=== PATIENT | male | born 1945 | race Hispanic/Latino ===

== ENCOUNTER 2020-07-08 14:04 | Observation (INO) | payer OTHER, MEDICARE ==
[~2020-07-08] VITALS: Ht 157.5 cm; Wt 71.8 kg
[2020-07-08 15:04] LABS: BASOPHILS % (AUTO) 0.4 % (0.0-5.0); EOSINOPHILS % (AUTO) 0.3 % (0.0-8.0); HEMATOCRIT 38.5 % (42-54); LYMPHOCYTES % (AUTO) 7.4 % (21.0-51.0); MEAN CORPUSCULAR HEMOGLOBIN 29.2 pg (27.0-33.0); MEAN CORPUSCULAR HGB CONC 32.2 g/dL (32.0-36.0); MEAN CORPUSCULAR VOLUME 90.6 fL (79-99); MONOCYTES % (AUTO) 5.2 % (3.0-13.0); NEUTROPHILS % (AUTO) 85.8 % (40.0-77.0); PLATELET COUNT (AUTO) 208 K/uL (130-400); RED BLOOD CELL COUNT(AUTO) 4.25 MIL/uL (4.50-6.20); RED CELL DISTRIBUTION WIDTH 14.7 % (11.0-15.5); WHITE BLOOD COUNT (AUTO) 9.6 K/uL (4.8-10.8)
[2020-07-08 15:17] LABS: CREATININE 1.7 mg/dL (0.5-1.5); POTASSIUM 3.7 mmol/L (3.5-5.1)
[2020-07-08 15:19] LABS: INR 1.06 (0.85-1.15); PROTHROMBIN TIME 11.5 SEC (9.6-11.6)
[2020-07-08 15:20] LABS: PARTIAL THROMBOPLASTIN TIME 25.1 SEC (26.3-35.5)
[2020-07-08 15:22] LABS: ALBUMIN 3.8 g/dL (3.5-5.0); BILIRUBIN,TOTAL 0.4 mg/dL (0.2-1.0); TOTAL PROTEIN, SERUM 7.6 g/dL (6.0-8.3)
[2020-07-08 15:27] LABS: B-TYPE NATRIURETIC PEPTIDE 740 pg/mL (0-100)
[2020-07-08] MEDS ORDERED: ONDANSETRON HCL 4 MG/2 ML VIAL IV PRN (18:15)
[2020-07-08] MEDS ORDERED: LACTULOSE 20 GM/30 ML UDCUP PO PRN (18:15)
[2020-07-08] MEDS ORDERED: ACETAMINOPHEN 325 MG TAB PO PRN ×2 (18:15)
[2020-07-08] MEDS ORDERED: ACETAMINOPHEN-CODEINE 300/30MG TAB PO PRN (18:15)
[2020-07-08] MEDS ORDERED: LABETALOL 20 MG/4 ML DISP.SYRIN IV PRN (19:15)
[2020-07-09] VITALS (10 sets, daily range): BP systolic 99–157; BP diastolic 64–90
[2020-07-09] MEDS ORDERED: CHOL500051 PO (00:33)
[2020-07-09] MEDS ORDERED: OMEG-148 PO (00:33)
[2020-07-09] MEDS ORDERED: METF-444 PO (00:33)
[2020-07-09] MEDS ORDERED: SIMV-43 PO (00:33)
[2020-07-09] MEDS ORDERED: AMLO10TA4 PO (00:33)
[2020-07-09] MEDS ORDERED: MULT-1259 PO (00:33)
[2020-07-09] MEDS ORDERED: AEC81 PO (00:33)
[2020-07-09] MEDS ORDERED: LOSA1TAB54 PO (00:33)
[2020-07-09] MEDS ORDERED: ASCO100031 PO (00:33)
[2020-07-09] MEDS: METOPROLOL TARTRATE 25 MG TAB PO SCH ×3 (00:37→20:26)
[2020-07-09] MEDS: ENOXAPARIN SODIUM 80 MG/0.8 ML SQ SCH ×2 (00:37→20:26)
[2020-07-09] MEDS: FAMOTIDINE 20MG TAB 20 MG TAB PO SCH ×2 (00:37→20:26)
[2020-07-09] MEDS: INSULIN LISPRO 100 UNIT/ML 3ML SQ SCH ×5 (05:26→23:41)
[2020-07-09 05:58] LABS: BASOPHILS % (AUTO) 0.7 % (0.0-5.0); EOSINOPHILS % (AUTO) 4.3 % (0.0-8.0); LYMPHOCYTES % (AUTO) 19.3 % (21.0-51.0); MEAN CORPUSCULAR HEMOGLOBIN 30.1 pg (27.0-33.0); MEAN CORPUSCULAR HGB CONC 33.2 g/dL (32.0-36.0); MEAN CORPUSCULAR VOLUME 90.5 fL (79-99); MONOCYTES % (AUTO) 9.7 % (3.0-13.0); NEUTROPHILS % (AUTO) 65.6 % (40.0-77.0); PLATELET COUNT (AUTO) 206 K/uL (130-400); RED BLOOD CELL COUNT(AUTO) 4.09 MIL/uL (4.50-6.20); RED CELL DISTRIBUTION WIDTH 14.7 % (11.0-15.5); WHITE BLOOD COUNT (AUTO) 7.5 K/uL (4.8-10.8)
[2020-07-09 06:09] LABS: HEMOGLOBIN A1C 6.4 % (4.0-6.0)
[2020-07-09 06:33] LABS: ALBUMIN 3.4 g/dL (3.5-5.0); BILIRUBIN,TOTAL 0.3 mg/dL (0.2-1.0); CREATININE 1.5 mg/dL (0.5-1.5); MAGNESIUM 1.9 mg/dL (1.80-2.40); POTASSIUM 3.7 mmol/L (3.5-5.1); THYROID STIMULATING HORMONE 1.52 uIU/mL (0.36-3.74); TOTAL PROTEIN, SERUM 6.9 g/dL (6.0-8.3)
[2020-07-09] MEDS: AMLODIPINE BESYLATE 5 MG TAB PO SCH (08:54)
[2020-07-09] MEDS: ASPIRIN 81MG TAB.CHEW PO SCH (08:54)
[2020-07-09] MEDS ORDERED: ASPIRIN 325 MG TABLET PO SCH (09:00)
[2020-07-09] MEDS: PROPAFENONE HCL 150 MG TABLET PO SCH ×2 (17:37→17:40)
[2020-07-09] MEDS: APIXABAN 5 MG TABLET PO SCH ×2 (17:37→20:26)
[2020-07-10] MEDS: PROPAFENONE HCL 150 MG TABLET PO SCH ×3 (01:50→18:15)
[2020-07-10 03:32] VITALS: BP 92/60
[2020-07-10] MEDS: INSULIN LISPRO 100 UNIT/ML 3ML SQ SCH ×3 (05:25→16:30)
[2020-07-10 06:07] LABS: CREATININE 1.7 mg/dL (0.5-1.5)
[2020-07-10 07:30] VITALS: BP_SYST 121; BP_SYST 128; BP_SYST 140; BP_DIAS 70; BP_DIAS 72
[2020-07-10] MEDS ORDERED: METOPROLOL TARTRATE 25 MG TAB PO SCH (09:00)
[2020-07-10] MEDS: ASPIRIN 81MG TAB.CHEW PO SCH (09:15)
[2020-07-10] MEDS: APIXABAN 5 MG TABLET PO SCH (09:16)
[2020-07-10] MEDS: AMLODIPINE BESYLATE 5 MG TAB PO SCH (09:16)
[2020-07-10] MEDS ORDERED: APIX5TAB PO (09:26)
[2020-07-10] MEDS ORDERED: PROP225C8 PO (09:26)
[2020-07-10] MEDS ORDERED: METO25TA6 PO (09:28)
[2020-07-10 11:00] VITALS: BP_SYST 120; BP_SYST 121; BP_SYST 125; BP_DIAS 65; BP_DIAS 66; BP_DIAS 74
[2020-07-10 16:00] VITALS: BP 107/64
[2020-07-11] MEDS ORDERED: NON-FORMULARY MEDICATION 1 EACH (Omega-3S/Dha/Epa/Fish Oil (Fish Oil 1,000 mg Softgel) 1 E PO SCH (09:00)
[2020-07-11] MEDS ORDERED: IRON PO SCH (09:00)
[2020-07-11] MEDS ORDERED: NON-FORMULARY MEDICATION 1 EACH (Cholecalciferol (Vitamin D3) (Vitamin D3) 125 MCG) PO SCH (09:00)
[2020-07-11] MEDS ORDERED: ASCORBIC ACID 500 MG TAB PO SCH (09:00)
[2020-07-11] MEDS ORDERED: [UNRECOGNIZED DRUG - OTHER] PO SCH (09:00)
[2020-07-11] MEDS ORDERED: MULTIVITAMIN TABLET PO SCH (09:00)
[2020-07-11] MEDS ORDERED: MULTIVITS CA MIN PO SCH (09:00)
[2020-07-11] MEDS ORDERED: LYCOP PO SCH (09:00)
[2020-07-11] MEDS ORDERED: METFORMIN HCL 500 MG TABLET PO SCH (09:00)
[2020-07-11] MEDS ORDERED: FISH OIL 1000 MG/CAP PO SCH (09:00)
[2020-07-11] MEDS ORDERED: NON-FORMULARY MEDICATION 1 EACH (Ascorbic Acid (Vitamin C) 1,000 MG) PO SCH (09:00)
== END 2020-07-10 19:10 | disposition home or self-care (01) ==
LOC: EDH 14:04 → EDHIP 17:30 → 3AH 23:51
PROVIDERS: ADMIT Internal Medicine Critical Care Medicine; ATTEND Internal Medicine Critical Care Medicine
DX: R42 Dizziness and giddiness (principal); R00.2 Palpitations; I48.0 Paroxysmal atrial fibrillation; I10 Essential (primary) hypertension; E78.5 Hyperlipidemia, unspecified; E11.9 Type 2 diabetes mellitus without complications; N17.9 Acute kidney failure, unspecified; E78.00 Pure hypercholesterolemia, unspecified; R06.02 Shortness of breath; H93.19 Tinnitus, unspecified ear; Z87.891 Personal history of nicotine dependence; Z79.82 Long term (current) use of aspirin; Z79.84 Long term (current) use of oral hypoglycemic drugs; Z79.01 Long term (current) use of anticoagulants; Z79.899 Other long term (current) drug therapy
CPT/HCPCS: 36415 ×3; 70450; 70544; 70547; 70551; 71045; 80048; 80053 ×2; 82550; 82948 ×7; 83036; 83735; 83880; 84443; 84484 ×3; 85025 ×2; 85610; 85730; 93005 ×2; 93306; 93356; 93970; 96372; 97039; 97116; 97161; 99285; G0378 ×48; G8978; G8979; G8980 ×2; G8981; G8982; G8983 ×2; J1650 ×2

== ENCOUNTER 2020-08-05 20:18 | Inpatient (IN) | payer OTHER, MEDICARE ==
[~2020-08-05] VITALS: Ht 147.3 cm; Wt 69.0 kg
[~2020-08-05 20:18] MED LIST: AEC81 PO; AMLO10TA4 PO; APIX5TAB PO; ASCO100031 PO; CHOL500051 PO; METF-444 PO; METO25TA6 PO; MULT-1259 PO; OMEG-148 PO; PROP225C8 PO; SIMV-43 PO
[2020-08-05 21:03] LABS: BASOPHILS % (AUTO) 0.7 % (0.0-5.0); EOSINOPHILS % (AUTO) 3.1 % (0.0-8.0); HEMATOCRIT 40.1 % (42-54); LYMPHOCYTES % (AUTO) 10.8 % (21.0-51.0); MEAN CORPUSCULAR HEMOGLOBIN 29.6 pg (27.0-33.0); MEAN CORPUSCULAR HGB CONC 32.7 g/dL (32.0-36.0); MEAN CORPUSCULAR VOLUME 90.5 fL (79-99); MONOCYTES % (AUTO) 8.4 % (3.0-13.0); PLATELET COUNT (AUTO) 186 K/uL (130-400); RED BLOOD CELL COUNT(AUTO) 4.43 MIL/uL (4.50-6.20); RED CELL DISTRIBUTION WIDTH 14.9 % (11.0-15.5); WHITE BLOOD COUNT (AUTO) 10.3 K/uL (4.8-10.8)
[2020-08-05 21:16] LABS: CREATININE 1.7 mg/dL (0.5-1.5); POTASSIUM 4.2 mmol/L (3.5-5.1)
[2020-08-05 21:19] LABS: APPEARANCE,URINE Clear (CLEAR); BILIRUBIN,URINE Negative (NEGATIVE); COLOR,URINE Yellow (YELLOW); GLUCOSE, URINE (UA) Negative (NEGATIVE); KETONES,URINE Negative (NEGATIVE); LEUKOCYTE ESTERASE ,URINE Negative (NEGATIVE); NITRATE,URINE Negative (NEGATIVE); OCCULT BLOOD,URINE Small (NEGATIVE); PROTEIN,URINE Negative (NEGATIVE); UROBILINOGEN,URINE 0.2 mg/dL (0.2-1.0)
[2020-08-05 21:21] LABS: ALBUMIN 4.1 g/dL (3.5-5.0); BILIRUBIN,TOTAL 0.6 mg/dL (0.2-1.0); TOTAL PROTEIN, SERUM 7.9 g/dL (6.0-8.3)
[2020-08-05 21:29] LABS: BACTERIA,URINE Rare /HPF (None Seen); WBC,URINE 0-1 /HPF (0-1)
[2020-08-05 21:30] LABS: SQUAMOUS EPITHELIAL CELL,UR Rare /HPF (0-2)
[2020-08-05 21:39] LABS: INR 1.2 (0.85-1.15); PARTIAL THROMBOPLASTIN TIME 25.9 SEC (26.3-35.5); PROTHROMBIN TIME 12.4 SEC (9.6-11.6)
[2020-08-06] MEDS ORDERED: NITROGLYCERIN 0.4 MG SL TAB SL PRN
[2020-08-06] MEDS ORDERED: GUAIFENESIN-DM 200/20 MG 10 ML PO PRN
[2020-08-06] MEDS ORDERED: ACETAMINOPHEN 325 MG TAB PO PRN ×2
[2020-08-06] MEDS ORDERED: ONDANSETRON 4MG INJ IV PRN
[2020-08-06] MEDS ORDERED: ALBUTEROL 0.083% 2.5 MG/3 ML INH IH ONE (01:18)
[2020-08-06] MEDS: ALBUTEROL 0.083% 2.5 MG/3 ML INH IH SCH ×6 (01:28→22:00)
[2020-08-06 02:16] VITALS: BP 160/79
[2020-08-06] MEDS ORDERED: LORA10TA7 PO (02:40)
[2020-08-06] MEDS ORDERED: METO25TA6 PO ×2 (02:40)
[2020-08-06] MEDS ORDERED: VIT C PO (02:40)
[2020-08-06] MEDS ORDERED: HYDR12.54 PO (02:40)
[2020-08-06] MEDS ORDERED: METF-444 PO (02:40)
[2020-08-06 03:56] VITALS: BP 150/72
[2020-08-06 09:37] VITALS: BP 151/79
[2020-08-06] MEDS: ASPIRIN 325 MG TABLET PO SCH (09:41)
[2020-08-06] MEDS ORDERED: METOPROLOL TARTRATE 25 MG TAB PO SCH (10:18)
[2020-08-06 12:21] VITALS: BP 113/74
[2020-08-06] MEDS: FUROSEMIDE 20MG VIAL IV SCH ×2 (13:32→20:12)
[2020-08-06] MEDS: ASCORBIC ACID 500 MG TAB PO SCH (13:34)
[2020-08-06] MEDS: HYDROCHLOROTHIAZIDE 25 MG TABLET PO SCH (13:34)
[2020-08-06] MEDS: APIXABAN 5 MG TABLET PO SCH ×2 (13:35→20:13)
[2020-08-06] MEDS: MULTIVITAMIN WITH MINERALS TABLET PO SCH (13:35)
[2020-08-06] MEDS: FISH OIL 1000 MG/CAP PO SCH (13:38)
[2020-08-06] MEDS: PROPAFENONE HCL 150 MG TABLET PO SCH ×2 (13:40→20:13)
[2020-08-06] MEDS: FAMOTIDINE 20MG VIAL IV SCH (16:54)
[2020-08-06] MEDS: SIMVASTATIN 20 MG TABLET PO SCH (20:12)
[2020-08-06] MEDS: METOPROLOL TARTRATE 25 MG TAB PO SCH (20:13)
[2020-08-06] MEDS: LORATADINE 10 MG TABLET PO SCH (20:13)
[2020-08-06 20:16] VITALS: BP 154/77
[2020-08-07] VITALS (7 sets, daily range): BP systolic 129–151; BP diastolic 84–102
[2020-08-07] MEDS: ALBUTEROL 0.083% 2.5 MG/3 ML INH IH SCH ×2 (02:15→06:55)
[2020-08-07] MEDS: FUROSEMIDE 20MG VIAL IV SCH (03:12)
[2020-08-07 05:30] LABS: CREATININE 2.1 mg/dL (0.5-1.5); POTASSIUM 3.7 mmol/L (3.5-5.1)
[2020-08-07] MEDS: ASPIRIN 325 MG TABLET PO SCH (07:45)
[2020-08-07] MEDS: ***HM***(Cholecalciferol (Vitamin D3) (Vitamin D3) 125 MCG) PO SCH (09:00)
[2020-08-07] MEDS: FAMOTIDINE 20MG VIAL IV SCH (10:08)
[2020-08-07] MEDS: ASPIRIN 81 MG EC TAB PO SCH (10:08)
[2020-08-07] MEDS: ASCORBIC ACID 500 MG TAB PO SCH (10:08)
[2020-08-07] MEDS: FISH OIL 1000 MG/CAP PO SCH (10:09)
[2020-08-07] MEDS: MULTIVITAMIN WITH MINERALS TABLET PO SCH (10:09)
[2020-08-07] MEDS: PROPAFENONE HCL 150 MG TABLET PO SCH ×2 (10:09→19:57)
[2020-08-07] MEDS: APIXABAN 5 MG TABLET PO SCH ×2 (10:10→19:22)
[2020-08-07] MEDS ORDERED: ALBUTEROL 0.083% 2.5 MG/3 ML INH IH PRN (11:15)
[2020-08-07] MEDS: HYDROCHLOROTHIAZIDE 25 MG TABLET PO SCH (13:17)
[2020-08-07] MEDS: SIMVASTATIN 20 MG TABLET PO SCH (19:57)
[2020-08-07] MEDS: METOPROLOL TARTRATE 25 MG TAB PO SCH (19:57)
[2020-08-07] MEDS: LORATADINE 10 MG TABLET PO SCH (19:57)
[2020-08-08] VITALS (11 sets, daily range): BP systolic 117–157; BP diastolic 74–93
[2020-08-08 05:06] LABS: BASOPHILS % (AUTO) 0.8 % (0.0-5.0); EOSINOPHILS % (AUTO) 7.5 % (0.0-8.0); HEMATOCRIT 43.1 % (42-54); LYMPHOCYTES % (AUTO) 17.5 % (21.0-51.0); MEAN CORPUSCULAR HEMOGLOBIN 30.1 pg (27.0-33.0); MEAN CORPUSCULAR HGB CONC 33.9 g/dL (32.0-36.0); MEAN CORPUSCULAR VOLUME 88.9 fL (79-99); MONOCYTES % (AUTO) 14.3 % (3.0-13.0); NEUTROPHILS % (AUTO) 59.6 % (40.0-77.0); PLATELET COUNT (AUTO) 192 K/uL (130-400); RED BLOOD CELL COUNT(AUTO) 4.85 MIL/uL (4.50-6.20); RED CELL DISTRIBUTION WIDTH 14.7 % (11.0-15.5); WHITE BLOOD COUNT (AUTO) 7.5 K/uL (4.8-10.8)
[2020-08-08 05:14] LABS: HEMOGLOBIN A1C 6.1 % (4.0-6.0)
[2020-08-08 05:27] LABS: CREATININE 2.3 mg/dL (0.5-1.5); INR 1.2 (0.85-1.15); PARTIAL THROMBOPLASTIN TIME 25.8 SEC (26.3-35.5); POTASSIUM 3.8 mmol/L (3.5-5.1); PROTHROMBIN TIME 12.4 SEC (9.6-11.6)
[2020-08-08] MEDS: ASPIRIN 81 MG EC TAB PO SCH (09:00)
[2020-08-08] MEDS: ***HM***(Cholecalciferol (Vitamin D3) (Vitamin D3) 125 MCG) PO SCH (09:00)
[2020-08-08] MEDS: PROPAFENONE HCL 150 MG TABLET PO SCH ×2 (09:00→20:08)
[2020-08-08] MEDS: ASCORBIC ACID 500 MG TAB PO SCH (09:00)
[2020-08-08] MEDS: FISH OIL 1000 MG/CAP PO SCH (09:00)
[2020-08-08] MEDS: MULTIVITAMIN WITH MINERALS TABLET PO SCH (09:00)
[2020-08-08] MEDS: APIXABAN 5 MG TABLET PO SCH ×2 (09:00→20:08)
[2020-08-08] MEDS ORDERED: MIDAZOLAM HCL 1 MG/ML 2ML VIAL ONE (09:47)
[2020-08-08] MEDS ORDERED: LIDOCAINE HCL 400MG/20ML VIAL ONE (09:47)
[2020-08-08] MEDS ORDERED: HEPARIN 1,000 UNIT VIAL ONE (09:47)
[2020-08-08] MEDS ORDERED: MEPERIDINE-PF 25 MG/ML SYG ONE (09:47)
[2020-08-08] MEDS: ASPIRIN 325 MG TABLET PO SCH (10:16)
[2020-08-08] MEDS: FAMOTIDINE 20MG VIAL IV SCH (10:16)
[2020-08-08] MEDS: HYDROCHLOROTHIAZIDE 25 MG TABLET PO SCH (12:00)
[2020-08-08] MEDS: SIMVASTATIN 20 MG TABLET PO SCH (20:07)
[2020-08-08] MEDS: LORATADINE 10 MG TABLET PO SCH (20:07)
[2020-08-08] MEDS: METOPROLOL TARTRATE 25 MG TAB PO SCH (20:08)
[2020-08-09 00:03] VITALS: BP 139/71
[2020-08-09 04:03] VITALS: BP 150/87
[2020-08-09 04:15] LABS: CREATININE 2.1 mg/dL (0.5-1.5); MAGNESIUM 2.2 mg/dL (1.80-2.40); POTASSIUM 3.8 mmol/L (3.5-5.1)
[2020-08-09] MEDS: ASPIRIN 81 MG EC TAB PO SCH (07:50)
[2020-08-09] MEDS: ***HM***(Cholecalciferol (Vitamin D3) (Vitamin D3) 125 MCG) PO SCH (07:50)
[2020-08-09] MEDS: APIXABAN 5 MG TABLET PO SCH (07:51)
[2020-08-09] MEDS: MULTIVITAMIN WITH MINERALS TABLET PO SCH (07:51)
[2020-08-09] MEDS: ASPIRIN 325 MG TABLET PO SCH (07:51)
[2020-08-09] MEDS: FISH OIL 1000 MG/CAP PO SCH (07:51)
[2020-08-09] MEDS: ASCORBIC ACID 500 MG TAB PO SCH (07:51)
[2020-08-09] MEDS: FAMOTIDINE 20MG VIAL IV SCH (07:51)
[2020-08-09 07:55] VITALS: BP 144/82
[2020-08-09 11:48] VITALS: BP 154/96
[2020-08-09] MEDS: HYDROCHLOROTHIAZIDE 25 MG TABLET PO SCH (11:50)
[2020-08-09] MEDS: PROPAFENONE HCL 150 MG TABLET PO SCH (11:51)
== END 2020-08-09 13:40 | disposition home or self-care (01) | DRG 273 ==
LOC: EDH 20:18 → UNDOADMOB 22:32 → INTOOBSV 22:32 → EDHIP 22:32 → OBSVTOIN 22:32 → 4BH 08-06 01:42 → EDHIP 08-06 01:42
PROVIDERS: ADMIT Internal Medicine Critical Care Medicine; ATTEND Internal Medicine Critical Care Medicine
PROC: 02583ZZ Destruction of Conduction Mechanism, Percutaneous Approach (ICD-10-PCS; principal; 2020-08-08)
PROC: 02K83ZZ Map Conduction Mechanism, Percutaneous Approach (ICD-10-PCS; 2020-08-08)
PROC: 4A023FZ Measurement of Cardiac Rhythm, Percutaneous Approach (ICD-10-PCS; 2020-08-08)
PROC: 4A0234Z Measurement of Cardiac Electrical Activity, Percutaneous Approach (ICD-10-PCS; 2020-08-08)
DX: I48.91 Unspecified atrial fibrillation (principal); I50.33 Acute on chronic diastolic (congestive) heart failure; I13.0 Hypertensive heart and chronic kidney disease with heart failure and stage 1 through stage 4 chronic kidney disease, or unspecified chronic kidney disease; N18.4 Chronic kidney disease, stage 4 (severe); D68.59 Other primary thrombophilia; I48.3 Typical atrial flutter; E11.22 Type 2 diabetes mellitus with diabetic chronic kidney disease; E78.5 Hyperlipidemia, unspecified; E78.00 Pure hypercholesterolemia, unspecified; Z79.84 Long term (current) use of oral hypoglycemic drugs; Z79.82 Long term (current) use of aspirin; Z79.01 Long term (current) use of anticoagulants; Z79.899 Other long term (current) drug therapy
CPT/HCPCS: 36415; 71045; 80048; 80053; 80061; 81001; 82550; 82948; 83036; 83735; 83880; 84484; 85025; 85610; 85730; 93005; 93613; 93621; 93653; 94640; 94664; 99156; 99157; C1732; C1894; G0378; J1644; J1940; J2175; J2250; J3490

== ENCOUNTER → 2021-11-23 | Outpatient (CLI) | payer OTHER, MEDICARE ==
[~2021-11-23] MED LIST changes: -AMLO10TA4 PO; -ASCO100031 PO; +HYDR12.54 PO; +LORA10TA7 PO; -METO25TA6 PO; +REGADENOSON 0.4 MG/5 ML PF SYG IVP SCH; +VIT C PO
== END | disposition home or self-care (01) ==
LOC: SHCH 08:55
PROVIDERS: ATTEND Internal Medicine Cardiovascular Disease
DX: I48.0 Paroxysmal atrial fibrillation (principal)
CPT/HCPCS: 78452; 96374; 93017; J2785; A9500 ×2

== ENCOUNTER → 2022-12-18 | Outpatient (CLI) | payer OTHER, MEDICARE ==
[~2022-12-18] MED LIST changes: -REGADENOSON 0.4 MG/5 ML PF SYG IVP SCH
== END | disposition home or self-care (01) ==
LOC: SHCH 10:37
PROVIDERS: ATTEND Internal Medicine Cardiovascular Disease
DX: I47.20 Ventricular tachycardia, unspecified (principal); I11.9 Hypertensive heart disease without heart failure; I08.0 Rheumatic disorders of both mitral and aortic valves; E11.9 Type 2 diabetes mellitus without complications; E78.5 Hyperlipidemia, unspecified
CPT/HCPCS: 93306